=== PATIENT | male | born 1955 | race Caucasian/White ===

== ENCOUNTER 2022-07-22 13:10 | Outpatient (CLI) | payer OTHER ==
[2022-07-22] MEDS ORDERED: CYSTOGRAFIN 300 ML INFUS..BTL UR ONE (14:12)
== END 2022-07-22 21:31 | disposition home or self-care (01) ==
LOC: SRD 13:10
PROVIDERS: ATTEND Urology Pediatric Urology
DX: C61 Malignant neoplasm of prostate (principal)
CPT/HCPCS: 74430; 51600; Q9958

== ENCOUNTER 2022-07-28 10:26 | Outpatient (CLI) | payer OTHER ==
[2022-07-28] MEDS ORDERED: CYSTOGRAFIN 300 ML INFUS..BTL UR ONE (10:40)
== END 2022-07-28 20:12 | disposition home or self-care (01) ==
LOC: SRD 10:26
PROVIDERS: ATTEND Urology Pediatric Urology
DX: C61 Malignant neoplasm of prostate (principal); R97.20 Elevated prostate specific antigen [PSA]
CPT/HCPCS: 74430; 51600; Q9958